=== PATIENT | male | born 2000 | race Caucasian/White ===

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

== ENCOUNTER 2025-05-03 23:06 | Emergency (ER) | payer BC, OTHER ==
[2025-05-04 02:24] VITALS: BP 114/68; PULSE 56
== END 2025-05-04 02:12 | disposition home or self-care (01) ==
LOC: JD.ED 23:06
DX: F32.A Depression, unspecified (principal); Z91.018 Allergy to other foods
CPT/HCPCS: 99283